=== PATIENT | female | born 2000 | race Caucasian/White ===

== ENCOUNTER 2025-09-19 03:23 | Emergency (ER) | payer OTHER ==
[~2025-09-19] VITALS: Ht 170.2 cm; Wt 77.2 kg
[2025-09-19 03:26] VITALS: BP 129/76; TEMP 97.9
--- NOTE | 2025-09-19 03:48 | ED.PDOC ---
SOB-HPI HPI Comments Pt presents with flu like symptoms x yesterday. She reports symptoms of nasal congestion, and runny nose, sinus pressure, sore throat, pt rates her pain currently at a 4/10. Pt currently 10 weeks . G1, P0, LMP 07/09/25 Pt denies fever, chills, n/v/d, sob, any abdominal pain, cramping, vaginal bleeding or urinary symptoms. Chief Complaint: Flu like Time Seen by MD: 03:33 Reviewed notes: Nurses Notes, Medications, Allergies Information Source: Patient Mode of Arrival: Ambulatory Past Medical History PAST MEDICAL HISTORY: Denies Surgical History: Denies all surgeries DIRECTOR FIXED INCOME History: No Pertinent DIRECTOR FIXED INCOME History Family History Family History: Unknown Social History Smoker: Non-Smoker Alcohol: Denies ETOH Use Drugs: Denies Drug Use All Other Systems: Reviewed and Negative (see hpi) Physical Exam General Appearance: No Apparent Distress, Normal HEENT: Pharyngeal Erythema, Sinuses (Mild tenderness palpated over maxillary sinus left greater than right), TMs Normal Neck: Full Range of Motion, Non-Tender Respiratory: Lungs Clear, No Accessory Muscle Use, No Respiratory Distress, Normal Breath Sounds Cardiovascular: No Edema, No JVD, No Murmur, No Gallop, Normal Peripheral Pulses, Regular Rate/Rhythm Breast Exam: Deferred Gastrointestinal: No Organomegaly, Non Tender, No Pulsatile Mass, Normal Bowel Sounds, Soft Genitalia: Deferred Pelvic: Deferred Rectal: Deferred Extremities: Normal range of motion, No pedal edema Musculoskeletal : Apperance: Normal Neurologic: Alert, No Motor Deficits, Normal Affect, Normal Mood, No Sensory Deficits Cerebellar Function: Normal Reflexes: NOT DONE Skin: Dry, Normal Color, Warm Lymphatic: No Adenopathy Was a procedure done? Was a procedure done?: No Differential Dx Differential Diagnosis: Asthma, Bronchitis, Pneumonia, Sinusitis, Allergic Rhinitis, Otitis Media, Pharyngitis, URI X-Ray, Labs, Meds, VS Vital Signs Date Time Temp Pulse Resp B/P (MAP) Pulse Ox O2 Delivery O2 Flow Rate FiO2 09/19/25 04:20 92 16 97 Room Air 09/19/25 03:26 97.9 92 16 129/76 97 97.9 Current Medications Medications (Trade) Dose Ordered Sig/Gibson Route Start Time Stop Time Status Last Admin Diphenhydramine HCl (Benadryl Capsule) 50 mg ONCE ONCE PO 09/19/25 04:15 09/19/25 04:16 DC 09/19/25 04:18 X-Ray, Labs, Meds, VS Comment Likely viral. Patient requesting trial of Benadryl. Requesting discharge at this time. Advised to rest increase p.o. fluids with electrolytes follow up with your PCP in 2-3 days as necessary ER return precautions given patient indicates understanding agrees with discharge plan of care Time of 1ST Reevaluation: 03:48 Reevaluation 1ST: Unchanged Time of 2ND Reevaluation: 04:14 Reevaluation 2ND: Improved Patient Education/Counseling: Diagnosis, Treatment, Need For Follow Up Family Education/Counseling: No Family Present SEPSIS Sepsis Screen Date sepsis recognized/suspect: Sep 19, 2025 Time Sepsis recognized/suspect: 328 Recent Procedure: No On Antibiotic Therapy: No Respiratory Rate >20: No Heart Rate >90: Yes Temp<36 C (96.8 F) or >38.3 C: No SBP <90 or MAP <65 mmHG: No New Acute Mental Status Change: No Is the patient on CPAP, BIPAP,: No Physician Orders Rapid Influenza A&B (09/19/25 03:49) Covid19 Antigen Malika (09/19/25 ) Vital Signs Date Time Temp Pulse Resp B/P (MAP) Pulse Ox O2 Delivery O2 Flow Rate FiO2 09/19/25 04:20 92 16 97 Room Air 09/19/25 03:26 97.9 92 16 129/76 97 97.9 Medications Medications Dose Ordered Sig/Gibson Route Start Time Stop Time Status Last Admin Dose Admin Diphenhydramine HCl 50 mg ONCE ONCE PO 09/19/25 04:15 09/19/25 04:16 DC 09/19/25 04:18 Departure 1 Departure Time of Disposition: 04:14 Impression: Primary Impression: URI, acute Disposition: 01 HOME / SELF CARE / HOMELESS Condition: Stable Discharged With: Self Critical Care Note Critical Care Time?: No Stability Stability form required: No Heart Score Heart Score: Heart Score Response (Comments) Value History N/A 0 EKG N/A 0 Age N/A 0 Risk Factors N/A 0 Troponin N/A 0 Total 0 DIOMEDES ORTIZ Sep 19, 2025 03:48
[2025-09-19 04:20] VITALS: PULSE 92; RESP 16; O2SAT 97
== END 2025-09-19 04:20 | disposition home or self-care (01) ==
LOC: ER 03:23
DX: O99.511 Diseases of the respiratory system complicating pregnancy, first trimester (principal); J06.9 Acute upper respiratory infection, unspecified; Z3A.10 10 weeks gestation of pregnancy